=== PATIENT | female | born 1950 | race Caucasian/White ===

== ENCOUNTER 2021-11-07 13:53 | Outpatient (CLI) | payer MEDICARE, BC, SELFPAY ==
--- NOTE | 2021-11-07 14:00 | CRLHL7_ITS ---
For Patients: As a result of the Century Cures Act, medical imaging exams and procedure reports are released immediately into your electronic medical record. You may view this report before your referring provider. If you have questions, please contact your health care provider. BILATERAL MAMMOGRAM WITH COMPUTER-AIDED DETECTION AND TOMOSYNTHESIS TECHNIQUE: CC and MLO views were obtained. These mammographic images have been obtained using full-field digital technique. These mammographic images were interpreted with the benefit of computer-aided detection. Breast Tomosynthesis was used in this interpretation. COMPARISON FILM: 11/06/2020, 11/01/2019, 05/24/2018. FINDINGS: There are scattered areas of fibroglandular density IMPRESSION: There is no radiographic evidence for malignancy. ASSESSMENT: BI-RADS Category 1: Negative RECOMMENDATION: Routine screening mammogram in 1 year. A lay language report of this examination will be provided to the patient. Dario Webb M.D. Diagnostic Radiologist [email or web address] HARRIETT/Dictated by: Dario Webb MD @ 11/11/2021 11:17:00 AM (Electronically Signed)
== END 2021-11-07 13:54 | disposition home or self-care (01) ==
LOC: MAMMO 13:54
PROVIDERS: PCP Internal Medicine; Visit Provider Internal Medicine
DX: Z12.31 Encounter for screening mammogram for malignant neoplasm of breast (principal)
CPT/HCPCS: 77063; 77067

== ENCOUNTER 2022-05-22 10:51 | Outpatient (RCR) | payer MEDICARE, BC, SELFPAY | END 2022-11-18 23:59 | disposition home or self-care (01) | LOC: CCIC 10:51 | PROVIDERS: PCP Internal Medicine; Visit Provider Nurse Practitioner Family | DX: D05.92 Unspecified type of carcinoma in situ of left breast (principal) | CPT/HCPCS: 99212; 99214 ==

== ENCOUNTER 2022-11-03 09:54 | Outpatient (CLI) | payer MEDICARE, BC, SELFPAY | END 2022-11-03 09:55 | disposition home or self-care (01) | PROVIDERS: PCP Internal Medicine; Visit Provider Internal Medicine | DX: E78.5 Hyperlipidemia, unspecified (principal); E66.01 Morbid (severe) obesity due to excess calories; I10 Essential (primary) hypertension; E21.0 Primary hyperparathyroidism | CPT/HCPCS: 80048; 80061; 82306; 82310; 82397; 83970 ==

== ENCOUNTER 2023-01-26 13:15 | Outpatient (CLI) | payer MEDICARE, BC, SELFPAY ==
--- NOTE | 2023-01-26 13:20 | CRLHL7_ITS ---
For Patients: As a result of the Century Cures Act, medical imaging exams and procedure reports are released immediately into your electronic medical record. You may view this report before your referring provider. If you have questions, please contact your health care provider. BILATERAL SCREENING MAMMOGRAM WITH COMPUTER-AIDED DETECTION AND TOMOSYNTHESIS TECHNIQUE: CC and MLO views were obtained. These mammographic images have been obtained using full-field digital technique. These mammographic images were interpreted with the benefit of computer-aided detection. Breast Tomosynthesis was used in this interpretation. COMPARISON FILM: 11/07/21, 11/06/20, 11/01/19. FINDINGS: There are scattered areas of fibroglandular density IMPRESSION: There is no radiographic evidence for malignancy. ASSESSMENT: BI-RADS Category 1: Negative RECOMMENDATION: Routine screening mammogram in 1 year. A lay language report of this examination will be provided to the patient. Dario Webb M.D. Diagnostic Radiologist [email or web address] HARRIETT/Dictated by: Dario Webb MD @ 01/27/2023 11:43:00 AM (Electronically Signed)
== END 2023-01-26 13:16 | disposition home or self-care (01) ==
LOC: MAMMO 13:18
PROVIDERS: PCP Internal Medicine; Visit Provider Internal Medicine
DX: Z12.31 Encounter for screening mammogram for malignant neoplasm of breast (principal)
CPT/HCPCS: 77063; 77067

== ENCOUNTER 2023-04-12 12:26 | Outpatient (RCR) | payer MEDICARE, BC, SELFPAY | END 2023-10-09 23:59 | disposition home or self-care (01) | LOC: CCIC 12:26 | PROVIDERS: PCP Internal Medicine; Visit Provider Physician Assistant | DX: C50.912 Malignant neoplasm of unspecified site of left female breast (principal); Z17.0 Estrogen receptor positive status [ER+]; M85.80 Other specified disorders of bone density and structure, unspecified site; E66.01 Morbid (severe) obesity due to excess calories; M17.11 Unilateral primary osteoarthritis, right knee | CPT/HCPCS: 99212; 99214 ==

== ENCOUNTER 2023-12-09 15:58 | Outpatient (CLI) | payer MEDICARE, BC, SELFPAY ==
--- OUTSIDE RECORDS SUMMARY | 2023-12-12 04:36 | XMS_ITS | Clinical Summary ---
Author Organization [facility] Address [place], [place] [address] Care Team Providers Care Global Regulatory Affairs Manager Name Role Phone Kristy Tellez MD Primary Care Provider [phone]- [phone] Allergies Active Allergy Reactions Criticality Noted Date Comments Amoxicillin-Pot Clavulanate Diarrhea 09/29/19 07 Medications Medication Sig Dispensed Refills Start Date End Date Status MULTIVITAMIN TAB take 1 tablet by oral route once daily with food 0 09/28/2006 Active GLUCOSAMINE-CHONDROITI N 500 MG-400 MG CAP 1 po qd 0 09/28/2006 Activ e ASPIRIN 81 MG TAB, DELAYED RELEASE take 1 tablet (81 mg) by oral route once every other day 0 Active CALCIUM 500 WITH D 500 MG (1,250 MG)-400 UNIT TAB 1 tablet twice daily 0 Active OMEGA-3 FATTY ACIDS 1,000 MG CAP 3 tablets once daily 0 Active Cholecalciferol, Vitamin D3, (VITAMIN D) 5,000 unit Tab Take 1 tablet by mouth. 1-2 tabs weekly 0 06/30/2011 Active lansoprazole (PREVACID) 15 mg capsule Take 1 capsule by mouth once daily before a meal. 0 07/26/2012 Active lisinopril (PRINIVIL; ZESTRIL) 20 mg tabletIndications:Unsp ecified essential hypertension Take 1 tablet by mouth once daily. 90 tablet 3 07/26/2012 Active verapamil SR (CALAN SR) 240 mg SR tabletIndications:Unsp ecified essential hypertension Take 1 tablet by mouth once daily with a meal. 90 tablet 3 07/26/2012 Active chlorthalidone (HYGROTON) 25 mg tabletIndications:Unsp ecified essential hypertension Take 1 tablet by mouth once daily. 90 tablet 3 09/06/2012 Active Active Problems Problem Noted Date Diagnosed Date Hyperparathyroidism 11/28/2012 Overview: normocalcemic. See lab results 11/19 Repeat calcium every 6 months, refer back to Dr. Kimball if >11.5. OK to restart chlorthalidone, this may increase the calcium again. See Dr. Kimball yearly. Colon polyp 04/07/2011 Overview: Colonoscopy 03/2011 polyp repeat in 5 years Colonoscopy 07/2016 polyps repeat in 5 years Vitamin D deficiency 01/30/2010 Obesity, unspecified 11/16/2008 Overview: BMI: 44.29 06/2007 Ganglion, unspecified 12/07/2007 Overview: left wrist Mixed hyperlipidemia 06/23/2007 Impaired fasting glucose 06/23/2007 Esophageal reflux 06/21/2007 Unspecified essential hypertension 09/28/2006 Dysphagia 09/28/2006 Overview: Esoph Dilation lifelong ppi per Dr Calvert Anxiety state, unspecified 09/28/2006 Resolved Problems Problem Noted Date Diagnosed Date Resolved Date Mixed hyperlipidemia 01/23/2010 013 Routine general medical exam ination at a health care facility 09/28/2006 07/26/2012 Overview: Colonoscopy 09/30/2005 Recheck 5 yrs Stress Echo negative 11/21/2004 Immunizations Name Administration Dates Next Due AMB Influenza, IIV3 (Age >=3 years)(Flu Clinic Only) 02/02/2012,02/28/2008 Influenza A (H1N1), Inactiva leticia (Age >=3 Years) 05/06/2009 Influenza, IIV3 (Age >=3 years) 04/07/20 11,01/23/2010,02/01/2009,2006,03/10/2006 Pneumococcal Poly,23-Valent (Pneumovax) 07/26/2012,02/14/2002 Td (Age >=7 Years) 01/16/2003 Tdap 07/26/2012 Zoster (Zostavax-ZVL, live) 09/06/2008 Family History Medical History Relation Name Comments Hypertension Father Heart Valve Rep lacement Diabetes Maternal Aunt 1 Other Maternal Aunt 2 Alzheimers Diabetes Maternal Uncle 1 Other Maternal Uncle 2 Alzheimers Other Maternal Uncle 3 Parkinsons Other Mother Alzheimers/aaa Diabetes Other Cancer-breast No Family History Relation Name Status Comments Father Alive Maternal Aunt 1 Maternal Aunt 2 Maternal Uncle 1 Maternal Uncle 2 Maternal Uncle 3 Mother (Age 82) AAA Other Social History Tobacco Use Types Packs/Day Years Used Date Smoking Tobacco: Never Smokeless Tobacco: Never Alcohol Use Standard Drinks/Week Comments Yes 0 (1 standard drink = 0.6 oz pur e alcohol) minimal Sex and Gender Information Value Date Recorded Sex Assigned at Not on file Gender Identity Not on file Sexual Orientation Not on file Obstetrics History Para Term AB IAB SAB Ectopic Multiple Livin g Live Births 4 3 1 1 3 Date Outcome GA Total Labor Labor/2nd/3rd Weight Sex Type Anes PTL Candida A1 A5 Name Clin Para Comments:HTN Para Comments:HTN Para Comments:HTN SAB Last Filed Vital Signs Vital Sign Reading Time Taken Comments Blood Pressure 136/90 10/25/2012 12:58 PM CDT Pulse 102 10/25/2012 12:58 PM CDT Temperature 36.8 ??C (98.3 ??F) 01/08/2012 9:25 AM CD T Respiratory Rate - - Oxygen Saturation 99% 04/07/2011 2:24 PM 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 Inhaled Oxygen Concentration - - Weight 146.1 kg (322 lb) 10/25/2012 12:58 PM CDT Height 172.7 cm (5' 8) 10/25/2012 12:58 PM CDT Body Mass Index 48.96 10/25/2012 12:58 PM CDT Plan of Treatment Health Maintenance Due Date Last Done Comments Depression screening for age 12+ 1960 BMI (ht and wt on same day) for age 18+ 1966 Hepatitis C screening for ag e 18-79 1966 Zoster (shingles) series for age 50+ (2 of 3) 11/01/2008 09/06/2008 DEXA/DXA scan for age 65+ 2013 Pneumococcal series for age 65+ (2 of 2 - PCV) 07/26/2013 07/26/2012, 02/14/2002 Lipids for age 45-75 07/26/2017 07/26/2012, 07/17/2011, 05/01/2010, Additional history exists Colonoscopy through age 75 07/20/202107/20, 07/20/2016, 04/07/2011, Additional history exists Tetanus booster 07/26/2022 07/26/2012, 01/16/2003 COVID-19 vaccine series ( season) 2023 Influenza for age 65+ 01/09/2024 02/02/2012 , 04/07/2011, 01/23/2010, Additional history exists Tdap Completed 07/26/2012 Procedures Procedure Name Priority Date/Time Associated Diagnosis Comments SCAN-COLONOSCOPY 07/20/2016 12:0 0 AM CDT LIPID PANEL W REFLEX MEASURED LDL Routine 07/26/2012 3:59 PM CDT Screening, lipid from Last 3 Months or Most Recently Relevant to Health Maintenance Results * SCAN-COLONOSCOPY (07/20/2016 12:00 AM CDT) Scanner OTHER * (ABNORMAL) LIPID PANEL W REFLEX MEASURED LDL (07/26/2012 3:59 PM CDT) CHOLESTEROL,TOTAL 203(H) 100 - 199 mg/dL 07/26/2012 4:53 PM CDT [facility] TRIGLYCERIDES 72 <150 mg/dL 07/26/2012 4:53 PM CDT [facility] HDL CHOLESTEROL 64 >40 mg/dL 3 4:53 PM CDT [facility] NON-HDL CHOLESTEROL 139 <145 mg/dl 07/26/2012 4:53 PM CDT [facility] CHOL/HDL RATIO 3.17 <4.50 07/26/2012 4:53 PM CDT [facility] LDL CHOLESTEROL 125 <=130 mg/dL 07/26/2012 4:53 PM CDT [facility] PATIENT STATUS NON-FASTI NG 07/26/2012 4:53 PM CDT [facility] Blood specimen (specimen) BLOOD SPECIMEN / Unknown 07/26/2012 3:59 PM CDT 07/26/2012 3:59 PM CDT Mamie RODRÍGUEZ CHEMISTRY [facility] [address] [place] [address] from Last 3 Months or Most Recently Relevant to Health Maintenance Care Teams Global Regulatory Affairs Manager Relationship Specialty Start Date End Date Kristy Tellez MD PCP - General Internal Medicine 05/12/13
== END 2023-12-09 15:59 | disposition home or self-care (01) ==
LOC: NFLDREF 12-12 04:35
PROVIDERS: PCP Internal Medicine; Referring Provider Internal Medicine; Visit Provider Internal Medicine
DX: M85.80 Other specified disorders of bone density and structure, unspecified site (principal); E78.5 Hyperlipidemia, unspecified; I10 Essential (primary) hypertension; E66.01 Morbid (severe) obesity due to excess calories; K44.9 Diaphragmatic hernia without obstruction or gangrene; K21.9 Gastro-esophageal reflux disease without esophagitis; E21.0 Primary hyperparathyroidism
CPT/HCPCS: 80048; 80061; 82306; 83970

== ENCOUNTER 2024-01-13 14:28 | Outpatient (CLI) | payer MEDICARE, BC, SELFPAY ==
--- OUTSIDE RECORDS SUMMARY | 2024-01-13 14:31 | XMS_ITS | Clinical Summary ---
Author Organization [facility] Address [place], [place] [address] Care Team Providers Care Lead Front End Developer Name Role Phone Kristy Tellez MD Primary Care Provider [phone]- [phone] Allergies Active Allergy Reactions Criticality Noted Date [...] - Oxygen Saturation 99% 04/07/2011 2:24 PM PACKER Inhaled Oxygen Concentration - - Weight 146.1 [...] 07/26/2012, 01/16/2003 COVID-19 vaccine series ( season) 2024 Influenza for age 65+ 01/09/2024 02/02/2012 , [...] - 199 mg/dL 07/26/2012 4:53 PM CDT [facility] TRIGLYCERIDES 72 <150 mg/dL 07/26/2012 4:53 PM CDT [facility] HDL CHOLESTEROL 64 >40 mg/dL 3 4:53 PM CDT [facility] NON-HDL CHOLESTEROL 139 <145 mg/dl 07/26/2012 4:53 PM CDT [facility] CHOL/HDL RATIO 3.17 <4.50 07/26/2012 4:53 PM CDT [facility] LDL CHOLESTEROL 125 <=130 mg/dL 07/26/2012 4:53 PM CDT [facility] PATIENT STATUS NON-FASTI NG 07/26/2012 4:53 PM CDT [facility] Blood specimen (specimen) BLOOD SPECIMEN / Unknown 07/26/2012 3:59 PM CDT 07/26/2012 3:59 PM CDT Mamie RODRÍGUEZ CHEMISTRY [facility] [address] [place] [address] from Last 3 Months or Most Recently Relevant to Health Maintenance Care Teams Lead Front End Developer Relationship Specialty Start Date End Date Kristy Tellez MD PCP - General Internal Medicine 05/12/13
== END 2024-01-13 14:29 | disposition home or self-care (01) ==
LOC: NFLDREF 14:29
PROVIDERS: PCP Internal Medicine; Visit Provider Internal Medicine
DX: I10 Essential (primary) hypertension (principal)
CPT/HCPCS: 80053

== ENCOUNTER 2024-01-20 07:37 | Day surgery (SDC) | payer MEDICARE, BC, SELFPAY ==
[2024-01-20] VITALS (25 sets, daily range): BP systolic 83–177; BP diastolic 51–107; PULSE 59–104; RESP 16–20; TEMP 35.8–37; O2SAT 90–97; BMI 50.9
[2024-01-20] MEDS: ACETAMINOPHEN 500 MG TABLET 1000 MG PO ×3 (07:40→20:34)
[2024-01-20] MEDS: OXYCODONE (CR) 10 MG TAB.ER.12H PO (07:40)
[2024-01-20] MEDS: CELECOXIB 200 MG CAPSULE PO (07:40)
[2024-01-20] MEDS: MIDAZOLAM HCL 1 MG/ML inj IVP (07:41)
--- OUTSIDE RECORDS SUMMARY | 2024-01-20 07:41 | XMS_ITS | Clinical Summary ---
Author Organization [employer] [facility] Address [place], [place] [address] Care Team Providers Care Assurance Sourcing Manager Name Role Phone Kristy Tellez MD Primary Care Provider [phone]- [phone] Allergies Active Allergy Reactions Criticality Noted Date [...] Problem Noted Date Diagnosed Date Hyperparathyroidism 11/28/2012 Overview (11/28/2012): normocalcemic. See lab results 11/19 Repeat calcium every 6 months, refer back to Dr. Kimball if >11.5. OK to restart chlorthalidone, this may increase the calcium again. See Dr. Kimball yearly. Colon polyp 04/07/2011 Overview (07/22/2016): Colonoscopy 03/2011 polyp repeat in 5 years Colonoscopy 07/2016 polyps repeat in 5 years Vitamin D deficiency 01/30/2010 Obesity, unspecified 11/16/2008 Overview (11/16/2008): BMI: 44.29 06/2007 Ganglion, unspecified 12/07/2007 Overview (12/07/2007): left wrist Mixed hyperlipidemia 06/23/2007 Impaired fasting glucose 06/23/2007 Esophageal reflux 06/21/2007 Unspecified essential hypertension 09/28/2006 Dysphagia 09/28/2006 Overview (09/28/2006): Esoph Dilation lifelong ppi per Dr Calvert Anxiety state, unspecified 09/28/2006 Resolved Problems Problem Noted Date Diagnosed Date Resolved Date Mixed hyperlipidemia 01/23/2010 013 Routine general medical exam ination at a health care facility 09/28/2006 07/26/2012 Overview (06/21/2007): Colonoscopy 09/30/2005 Recheck 5 yrs Stress Echo [...] - Oxygen Saturation 99% 04/07/2011 2:24 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 Inhaled Oxygen Concentration - - Weight 146.1 [...] C screening for ag e 18-79 1966 RSV vaccine for adults or (1 - 1-dose 60+ series) 2008 Zoster (shingles) series for age 50+ (2 of 3) 11/01/2008 09/06/2008 DEXA/DXA scan for age 65+ 2013 Pneumococcal series for age 65+ (2 of 2 - PCV) 07/26/2013 07/26/2012, 02/14/2002 Lipids for age 45-75 07/26/2017 07/26/2012, 07/17/2011, 05/01/2010, Additional history exists Colonoscopy through age 75 07/20/202107/20, 07/20/2016, 04/07/2011, Additional history exists Tetanus booster 07/26/2022 07/26/2012, 01/16/2003 COVID-19 vaccine series ( - 2022- season) 2024 Influenza for age 65+ 01/09/2024 [...] - 199 mg/dL 07/26/2012 4:[address] [facility] TRIGLYCERIDES 72 <150 mg/dL 07/26/2012 4:[address] [facility] HDL CHOLESTEROL 64 >40 mg/dL 3 4:[address] [facility] NON-HDL CHOLESTEROL 139 <145 mg/dl 07/26/2012 4:[address] [facility] CHOL/HDL RATIO 3.17 <4.50 07/26/2012 4:[address] [facility] LDL CHOLESTEROL 125 <=130 mg/dL 07/26/2012 4:[address] [facility] PATIENT STATUS NON-FASTI NG 07/26/2012 4:[address] [facility] Blood specimen (specimen) BLOOD SPECIMEN / Unknown 07/26/2012 3:59 PM CDT 07/26/2012 3:59 PM CDT Mamie RODRÍGUEZ CHEMISTRY [facility] [address] [place] [address] from Last 3 Months or Most Recently Relevant to Health Maintenance Care Teams Assurance Sourcing Manager Relationship Specialty Start Date End Date Kristy Tellez MD PCP - General Internal Medicine 05/12/13
[2024-01-20] MEDS: LACTATED RINGERS 1000 ML 1,000 ML 100 ML IV (08:45)
[2024-01-20] MEDS: SODIUM CHLORIDE 0.9 % (FLUSH) 10 ML SYRINGE IVF (08:45)
[2024-01-20] MEDS: fentaNYL 100 MCG/2 ML inj IVP (09:20)
--- NOTE | 2024-01-20 09:29 | SUR.PREOP ---
TIME?OUT:?917, right knee PT/RN/MDA?VERIFICATION?OF?SURGICAL?SITE,?PROCEDURE,?AND?CONSENT OBTAINED?PRIOR?TO?INVASIVE?PROCEDURE.
--- NOTE | 2024-01-20 10:34 | P.NB_ITS ---
Nerve Block Nerve Block Time Seen by Provider: : Date Seen: 01/20/24 Type of block requested by surgeon for post-operative analgesia: adductor canal Side: right Time out performed: Yes Verification of patient name: Yes Verification of date of : Yes Site marking: site marked Name of person performing procedure: Gamaliel Continuous monitoring Was continuous monitoring of O2 sat, B/P, property assessment monitor, recorded every 15 minutes?: Yes Procedure Checklist: sterile prep, needles and gloves Ultrasound guided. Images saved: Yes Medications given in 5ml increments after negative aspiration: Ropivicaine %: 0.5 mL: 20 Needle gauge: 20 Decadron (mg): 10 Precedex (mcg): 25 Patient tolerated procedure well: Yes Additional comments: Needle noted adjacent to nerve Block Charges Block Charge (with Pro Fee): Femoral Nerve Use of Ultrasound Machine for Block: Yes- US Guidance/pain block
--- NOTE | 2024-01-20 10:35 | P.NB_ITS ---
Nerve Block Nerve Block Time Seen by Provider: :26 Date Seen: 01/20/24 Type of block requested by surgeon for post-operative analgesia: geniculars Side: right Time out performed: Yes Verification of patient name: Yes Verification of date of : Yes Site marking: site marked Name of person performing procedure: Gamaliel Continuous monitoring Was continuous monitoring of O2 sat, B/P, nuclear monitoring technician, recorded every 15 minutes?: Yes Procedure Checklist: sterile prep, needles and gloves Medications given in 5ml increments after negative aspiration: Ropivicaine %: 0.5 mL: 9 Needle gauge: 25 Patient tolerated procedure well: Yes Block Charges Block Charge (with Pro Fee): Genicular Nerve Block Use of Ultrasound Machine for Block: No
--- NOTE | 2024-01-20 10:35 | W.ANESCHARGE ---
Anesthesia Charges Start Date/Time Anesthesia Start Date: 01/20/24 Anesthesia Start Time: 09:50 Stop Date/Time Anesthesia Stop Date: 01/20/24 Anesthesia Stop Time: 12:30 Summary Extremes of Age - Over 70 or under 1: MDA
--- NOTE | 2024-01-20 11:37 | CRLHL7_ITS ---
For Patients: As a result of the Cures Act, medical imaging exams and procedure reports are released immediately into your electronic medical record. You may view this report before your referring provider. If you have questions, please contact your health care provider. Indication: Postop TKA Technique: Two views right knee Findings/Impression: Hardware from a right total knee arthroplasty is in satisfactory position. Bone alignment is normal. No sign of acute fracture. Postop changes are within normal limits. Dictated by Dario Webb MD @ 01/21/2024 10:11:15 AM (Electronically Signed)
--- NOTE | 2024-01-20 11:41 | PM.ORPRC ---
Procedure Note Date of procedure: 01/20/24 Procedure: PREOPERATIVE DIAGNOSIS: Right knee osteoarthritis POSTOPERATIVE DIAGNOSIS: Right knee osteoarthritis NAME OF OPERATION: Right total knee arthroplasty SURGEON: Stevie Deleon MD GUEST SERVICES OFFICER: JOSHUA Renner ANESTHESIA: Spinal ESTIMATED BLOOD LOSS: 10 mL COMPLICATIONS: None SPECIMENS: None DRAINS: None PREOPERATIVE ANTIBIOTICS: Ancef 3 grams, antibiotic impregnated cement IMPLANTS: 1. J&J Attune revision CRS # 8 posterior stabilized femur, with a 14 mm x 50 mm cemented stem 2. #6 revision CRS fixed-bearing tibia, with a 14 mm x 50 mm cemented stem 3. # 8 posterior stabilized, 5 mm fixed-bearing polyethylene 4. 38 patella INDICATIONS: The patient is a 73-year-old with a longstanding history of severe, unrelenting right knee pain secondary to end-stage (grade IV) right knee osteoarthritis. Despite appropriate nonoperative management, including activity modification, anti-inflammatories, [id number] pain medication, bracing, physical therapy, and injections they continue to have pain and disability. Operative intervention was offered. The risks, benefits and expected outcomes were discussed in detail. These included but were not limited to: Infection, bleeding, injury to blood vessel or nerve, venous thromboembolism. All questions were answered to their satisfaction. Use of an internet marketing assistant was necessary throughout the case for patient positioning and safety, soft tissue retraction, and closure. A modifier 22 should be added to this case. The patient's weight of 152 kg with a BMI of 51 made the exposure difficult. Additionally, to reduce the risk of aseptic loosening, stemmed components were used. These factors added more time and expense to complete the case. PROCEDURE: Spinal anesthesia was administered. The patient was placed supine on the operating table. The internet marketing assistant made sure the patient was positioned appropriately. The lower extremity was prepped and draped in the usual sterile fashion. The limb was exsanguinated with the Zeb bandage. The pneumatic tourniquet was inflated to 300 mmHg. A standard anterior incision was made with the knee in flexion. Subcutaneous dissection was sharply taken through fascial layer #1. Full-thickness medial and lateral flaps were elevated. The internet marketing assistant retracted the soft tissues and protected them throughout the case. A standard subvastus approach was made. The patella was subluxed. The infrapatellar fat pad was debrided. The menisci and cruciate ligaments were sharply d?brided. Marginal osteophytes were d?brided with the rongeur. The drill was used to penetrate the femoral canal. The canal was aspirated and irrigated with pulse lavage. The intramedullary femoral guide was placed for a 5-degree valgus cut, removing 10 mm off the distal femur. The saw was used to make the cut. Whitesides line and the trans epicondylar axis were marked. The femoral sizing guide was pinned onto the distal femur. Three degrees of external rotation nicely parallels the transepicondylar axis. Pins were placed for posterior referencing. The four-in-one cutting guide was pinned onto the distal femur. The anterior, posterior, and chamfer cuts were made. The internet marketing assistant protected the collateral ligaments. The revision trial was placed. The box cuts were made. The drill was used x2. The stemmed, boxed trial was placed and was an excellent fit. Attention was then turned to the proximal tibia. The extramedullary tibial guide was placed for a neutral varus/valgus cut with 5 degrees of posterior slope, removing 2 mm based off the medial tibial surface. The internet marketing assistant protected the collateral ligaments and the neurovascular bundle. The saw was used to make the cut. Trial components were placed. The knee was nicely balanced in both flexion and extension. The trial components were removed. The tray was placed in appropriate rotation, parallel to our tibial cutting pins. It was pinned by the internet marketing assistant and the drill x2 was used. The stemmed tibial trial was placed. The punch was used. The tray was removed. The punch was used again. Attention was then turned to the patella. [place] patellar thickness was 24 mm. The lobster claw resection guide was used with the 9.5 mm syd. The saw was used to make the cut. Drill holes were made by the internet marketing assistant. The trial was placed and was an excellent fit. Cancellous surfaces were irrigated with pulse lavage and thoroughly dried by the internet marketing assistant. We cemented the tibial component, then the femoral component. We impacted the 5 mm polyethylene onto the tibial tray. The knee was brought into full extension. We then cemented the patellar component. Excessive cement was removed. The cement was allowed to harden. The knee was taken through a range of motion and was found to be nicely balanced in both flexion and extension. The patella tracks centrally. The internet marketing assistant did a three minute dilute Betadine solution soak. The internet marketing assistant irrigated the wound with 3 liters of normal saline via pulse lavage. The internet marketing assistant reapproximated the extensor mechanism with #1 Vicryl in an interrupted [id number] fashion. The internet marketing assistant then ran the extensor mechanism with a #1 PDO Stratafix. The internet marketing assistant closed the subcutaneous tissues with a 3-0 Stratafix and the skin with a running 3-0 Stratafix in a subcuticular fashion. Glue was used to seal the skin. The internet marketing assistant placed a dry dressing. Sponge and needle counts were correct x2. The patient tolerated the procedure well. There were no apparent complications. They were carefully transferred to the hospital bed and taken to the postanesthesia care unit in satisfactory condition. PLAN: The patient will be mobilized with physical therapy. Aspirin will be used for DVT prophylaxis. They will be discharged to home once medically appropriate.
--- NOTE | 2024-01-20 12:32 | P.ANES_ITS ---
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
[2024-01-20] MEDS: ONDANSETRON 2 MG/ML inj 4 MG IVP (12:44)
[2024-01-20] MEDS: LACTATED RINGERS 1000 ML 1,000 ML 35 ML IV (12:48)
--- NOTE | 2024-01-20 15:07 | PC.NURSE ---
end of shift. pt has been very pleasant. no pain, so far. she is eating, drinking no void so far. IV is patent. dressing is C/D/I. active ice to the knee. IS to 1999. Plexi are on. PT is in working with her.
[2024-01-20] MEDS: CEFAZOLIN 3 GM in 0.9 % SODIUM CHLORIDE Mini-bag 100 ML IVPB ×2 (15:59→23:35)
[2024-01-20] MEDS: OXYCODONE 5 MG TABLET PO ×3 (17:22→23:24)
--- NOTE | 2024-01-20 17:53 | P.IMCN_ITS ---
Date of Consult Consult date: 01/20/24 Primary Care Provider: Kristy Tellez MD Consult Narrative Narrative: Annika Saul is a 73 year old female with past medical history of morbid obesity, hypertension, hyperlipidemia, IFG, sinus tachycardia, primary hyperparathyroidism and breast cancer s/p surgery in 2019 who has been admitted electively for Right total knee arthroplasty. Post operatively patient's blood pressures were soft, but IV fluids were administered and blood pressure improved and came back to normal S BP currently is 124 mm Hg. Her heart rate currently is controlled between 59-75 beats per minute, patient took her home medication of verapamil today morning. Patient is tolerating food and states that she had urinated without any problems. Pain is controlled with pain medication. Review of Systems Status of ROS: Reports: 6 or more systems reviewed and unremarkable except as noted in History and below [facility] Medical History (Updated 01/20/24 @ 18:11 by Mariaelena Andrade MD) Unspecified essential hypertension (09/28/06) ?I10 - Essential (primary) hypertension (ICD-10) Esophageal reflux (06/21/07) ?K21.9 - Gastro-esophageal reflux disease without esophagitis (ICD-10) Vitamin D deficiency (01/30/10) ?E55.9 - Vitamin D deficiency, unspecified (ICD-10) Obesity, unspecified (11/16/08) ?E66.9 - Obesity, unspecified (ICD-10) Mixed hyperlipidemia (06/23/07) ?E78.2 - Mixed hyperlipidemia (ICD-10) Impaired fasting glucose (06/23/07) ?R73.01 - Impaired fasting glucose (ICD-10) Hyperparathyroidism (11/28/12) ?E21.3 - Hyperparathyroidism, unspecified (ICD-10) Ganglion, unspecified (12/07/07) ?M67.40 - Ganglion, unspecified site (ICD-10) Dysphagia (09/28/06) ?R13.10 - Dysphagia, unspecified (ICD-10) Colon polyp (04/07/11) ?K63.5 - Polyp of colon (ICD-10) Anxiety state, unspecified (09/28/06) ?F41.1 - Generalized anxiety disorder (ICD-10) Family history of DVT ?Z82.49 - Family history of ischemic heart disease and other diseases of the circulatory system (ICD-10) 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/05/13) ?K22.2 - Esophageal obstruction (ICD-10) History of iron deficiency anemia (2018) ?Z86.2 - Personal history of diseases of the blood and blood-forming organs and certain disorders involving the immune mechanism (ICD-10) Surgical History (Updated 01/20/24 @ 18:07 by Mariaelena Andrade MD) History of arthroplasty of right knee (01/20/24) ?Z96.651 - Presence of right artificial knee joint (ICD-10) H/O arthroscopy of left knee (02/07/13) ?Z98.890 - Other specified postprocedural states (ICD-10) History of tonsillectomy (01/05/13) ?Z90.89 - Acquired absence of other organs (ICD-10) History of lumpectomy of left breast (2019) ?Z98.890 - Other specified postprocedural states (ICD-10) History of cholecystectomy (2005) ?Z90.49 - Acquired absence of other specified parts of digestive tract (ICD- 10) History of appendectomy (01/05/13) ?Z90.49 - Acquired absence of other specified parts of digestive tract (ICD- 10) Social History (Reviewed 03/02/23 @ 14:26 by Ekta Pace ~ [facility], [facility]) What is your current living situation?: I presently have a place to live In the past 12 months, utilities in danger of being shut off: no In past 12 months, lack of transportation kept you from medical appts, meetings, work, or getting things needed for daily living: no In the past 12 mos, have been you worried that your food would run out before you had money to buy more?: never true In the past 12 mos, the food you bought just didn't last and you didn't have money to buy more?: never true Smoking Status: Never smoker Second hand tobacco smoke exposure: No How often do you have a drink containing alcohol: never AUDIT-C Alcohol total score: 0 Non-prescribed substance use: denies use Caffeine: Yes How often does anyone, including family, friends and others, physically hurt you : never How often does anyone, including family, friends and others, insult or talk down to you: never How often does anyone, including family, friends and others, threaten you with harm: never How often does anyone, including family, friends and others, scream or curse at you: never Little interest or pleasure in doing things: not at all Feeling down, depressed, or hopeless: not at all service: No Meds Home Medications and Allergies Home Medications ?Medication ?Instructions ?Recorded ?Confirmed ?Type calcium carbonate 500 mg PO QDAY 05/22/22 01/20/24 History cholecalciferol (vitamin D3) 25 25 mcg PO QDAY 05/22/22 01/20/24 History mcg (1,000 unit) capsule acetaminophen 650 mg 650 mg PO Q8H PRN 04/12/23 01/20/24 History tablet,extended release (Tylenol Arthritis Pain) loratadine 10 mg tablet 10 mg PO QDAY PRN 04/12/23 01/20/24 History Allergies Allergy/AdvReac Type Severity Reaction Status Date / Time adhesive Allergy Intermediate Rash Verified 01/20/24 07:55 amoxicillin Allergy Intermediate Diarrhea Verified 01/20/24 07:55 aspirin Allergy Mild bleeding Verified 01/20/24 07:55 clavulanic acid AdvReac Diarrhea Verified 01/20/24 07:55 [From Augmentin] Exam Narrative: Exam Narrative: Physical exam GENERAL: Comfortable, no acute distress. HEAD AND NECK: Atraumatic, normocephalic CARDIOVASCULAR: RRR. Normal S1, S2. No murmurs. RESPIRATORY: Clear to auscultation B/L. Good air entry B/L. No wheezes or rhonchi. GASTROINTESTINAL: Obese, not tender to palpation. NEUROLOGY: Alert, awake, oriented X 3. Normal speech. PSYCH: Normal mood, normal affect. Const: Vital Signs, click to edit/add: Vital Signs - 24 hr 01/20/24 08:19 01/20/24 09:20 01/20/24 09:30 Temperature 98.3 F Pulse Rate 104 H 95 89 Respiratory Rate 20 20 20 Blood Pressure 148/107 H 177/92 H 166/87 H Pulse Oximetry 94 97 95 Oxygen Delivery Me thod Room Air Nasal Cannula Nasal Cannula Oxygen Flow Rate 2 2 01/20/24 09:36 01/20/24 12:25 01/20/24 12:30 Temperature 96.8 F L Pulse Rate 80 75 69 Respiratory Rate 20 16 16 Blood Pressure 134/74 88/51 L 83/58 L Pulse Oximetry 95 92 94 Oxygen Delivery Me thod Nasal Cannula Room Air Room Air Oxygen Flow Rate 2 01/20/24 12:30 01/20/24 12:35 01/20/24 12:40 Temperature Pulse Rate 65 66 68 Respiratory Rate 16 16 16 Blood Pressure 106/72 92/57 L 99/57 L Pulse Oximetry 90 94 93 Oxygen Delivery Me thod Room Air Room Air Room Air Oxygen Flow Rate 01/20/24 12:45 01/20/24 12:50 01/20/24 12:55 Temperature 97.0 F L Pulse Rate 69 68 97 Respiratory Rate 16 16 16 Blood Pressure 99/61 94/61 102/62 Pulse Oximetry 94 95 94 Oxygen Delivery Me thod Room Air Room Air Room Air Oxygen Flow Rate 01/20/24 13:02 01/20/24 13:15 01/20/24 13:30 Temperature 96.4 F L Pulse Rate 77 76 76 Respiratory Rate 16 16 16 Blood Pressure 104/69 110/65 110/65 Pulse Oximetry 91 92 91 Oxygen Delivery Me thod Room Air Room Air Room Air Oxygen Flow Rate 2 01/20/24 13:49 01/20/24 14:02 01/20/24 14:15 Temperature Pulse Rate 67 75 66 Respiratory Rate 16 16 16 Blood Pressure 100/52 L 101/60 100/59 L Pulse Oximetry 94 92 91 Oxygen Delivery Me thod Room Air Room Air Room Air Oxygen Flow Rate 2 01/20/24 14:30 01/20/24 14:30 01/20/24 14:45 Temperature Pulse Rate 66 68 60 Respiratory Rate 16 16 16 Blood Pressure 100/59 L 103/61 108/66 Pulse Oximetry 91 92 91 Oxygen Delivery Me thod Room Air Room Air Room Air Oxygen Flow Rate 2 01/20/24 16:00 01/20/24 17:00 01/20/24 17:42 Temperature Pulse Rate 64 66 Respiratory Rate 20 20 20 Blood Pressure 125/82 123/64 Pulse Oximetry 96 94 96 Oxygen Delivery Me thod Room Air Oxygen Flow Rate 01/20/24 17:47 Temperature Pulse Rate 59 L Respiratory Rate 20 Blood Pressure 124/67 Pulse Oximetry 94 Oxygen Delivery Me thod Oxygen Flow Rate Assessment and Plan Assessment and plan (1) Status post total knee replacement, right: Problem comment: -Orthopedic surgeon following -early mobilization -physical therapy/ occupational therapy -Aspirin 81 mg po bid will be used for DVT prophylaxis. Status: Acute (2) Sinus tachycardia: Problem comment: -Sinus tachycardia controlled with verapamil 240 mg extended release once a day. Patient took her dose today morning. -Verapamil stopped 2017 due to hypotension, Verapamil restarted 03/28 Status: Acute (3) Primary hyperparathyroidism: Problem comment: -mildly elevated calcium -will be monitored Status: Acute (4) Essential hypertension: Problem comment: -patient's home meds are chlorthalidone 25 mg once daily and verapamil 240 mg extended release once a day. -patient took verapamil and the morning of surgery but held chlorthalidone. Status: Acute (5) Gastroesophageal reflux disease: Problem comment: -On omeprazole Status: Acute (6) Pre-diabetes: Problem comment: Diagnosed 12/31 (fasting glucose 122) Status: Acute (7) Hyperlipidemia: Problem comment: noted 01/22 (LDL 144), LDL 126 2016, LDL 105 2017 Status: Acute (8) Morbid obesity: Problem comment: BMI 51.4 Status: Acute Plan as above Total Time Spent Total Time Spent: Time spent: Today I spent 75 minutes seeing the patient, discussing the patient with ER staff, reviewing Expanse and EPIC notes/diagnostics, discussing the care plan with our care time that includes PT/OT, pharmacy, care home and documenting my impressions and plan in the medical record.
[2024-01-20] MEDS: SENNOSIDES 1 TAB TABLET 2 TAB PO (20:35)
--- NOTE | 2024-01-20 22:23 | PC.NURSE ---
End of shift [id number] - Pt alert, oriented, cooperative. Up with standby assistance and walker with PT to chair and with nursing staff to bathroom. Continent of bowel and bladder during shift. Reported pain in operative leg as 5-8/10, given medication per MAR with pt reporting improved comfort. Ice pack on site, dressing CDI, pedal pulse present. Family at bedside, pt tolerating RA, regular diet/fluids. Pt appears to be resting comfortably in bed at end of shift with call light within reach.
[2024-01-21] MEDS: ACETAMINOPHEN 500 MG TABLET 1000 MG PO ×2 (02:56→08:11)
[2024-01-21 02:57] VITALS: BP 111/61; PULSE 77; RESP 18; TEMP 36.3; O2SAT 92
[2024-01-21] MEDS: OMEPRAZOLE 20 MG CAPSULE DR PO ×2 (05:51→08:12)
[2024-01-21 06:27] LABS: Basophils Percent Auto 0.1 % (0.0-3.0); Hemoglobin* 14.4 gm/dL (12.0-16.0); Immature Granulocytes Pct Auto 0.1 %; Lymphocytes Percent Auto 9.4 % (20-44); Mean Corpuscular HGB Conc 33 gm/dL (32-36); Mean Corpuscular Hemoglobin 30 pg (26-34); Mean Corpuscular Volume 92 fL (80-100); Neutrophils Percent Auto 84.4 % (42.0-72.0); Platelet Count* 163 K/uL (140-440); RDW Coefficient of Variation % 13.2 % (11.5-15.5); Red Blood Count 4.79 m/uL (4.00-5.20); White Blood Count* 12.19 K/uL (4.50-11.00)
[2024-01-21 06:29] LABS: Slide Review Reflex No
[2024-01-21 06:42] LABS: Potassium* 3.6 mmol/L (3.6-5.1); Sodium* 136 mmol/L (135-149)
[2024-01-21 06:45] LABS: Creatinine* 0.7 mg/dL (0.5-1.5); Est. Creatinine Clearance* 49.03; Estimated Glomerular Filt Rate 90 ml/min; Prothrombin Time 14.9 Seconds
[2024-01-21 06:46] LABS: Blood Urea Nitrogen* 19 mg/dL (7-30)
[2024-01-21 07:00] VITALS: BP 130/54; PULSE 88; RESP 18; TEMP 36.4; O2SAT 92
--- NOTE | 2024-01-21 07:33 | PC.NURSE ---
Pt is alert and oriented x3. Afebrile. Pt reports 5/10 pain in right knee, managed with cold pack, scheduled and PRN medications. Pt?s right knee dressing is CDI. Pt?s IV infiltrated, removed IV, catheter intact, wrapped hand in warm blanket and elevated on pillow, swelling came down. Pt up SBA with walker and gait belt, tolerating regular diet and voiding. Updated Daisy IBRAHIM on IV, gave ok to leave IV out.
[2024-01-21] MEDS: ASPIRIN 81 MG TABLET EC PO (08:11)
[2024-01-21] MEDS: SENNOSIDES 1 TAB TABLET 2 TAB PO (08:11)
[2024-01-21] MEDS: OXYCODONE 5 MG TABLET PO ×2 (08:18→11:14)
--- NOTE | 2024-01-21 08:26 | PM.ORPN ---
Subjective Subjective Time Seen by Provider: 07:15 Date Seen: 01/21/24 Principal diagnosis: Status post right knee replacement Interval history: Anniak is comfortable. Her family members are with her this morning. She will discharge to home today. Ortho Exam Narrative Exam Narrative: Alert and oriented x3. Patient is in no acute distress. Converses without labored breathing. Hearing is grossly intact. Ambulates with a walker. Examination the right lower extremity shows the dressing is intact. No erythema or warmth or sign of infection. Little to no soft tissue edema. No pretibial edema. CMS intact right lower extremity. Calves are soft and nontender. She is able to straight leg raise. Const Vital Signs, click to edit/add: Vital Signs - 24 hr 01/20/24 09:20 01/20/24 09:30 01/20/24 09:36 Temperature Pulse Rate 95 89 80 Pulse Rate [Left Pulse Oximeter] Respiratory Rate 20 20 20 Blood Pressure 177/92 H 166/87 H 134/74 Blood Pressure [Right Arm] Pulse Oximetry 97 95 95 Oxygen Delivery Method Nasal Cannula Nasal Cannula Nasal Cannula Oxygen Flow Rate 2 2 2 01/20/24 12:25 01/20/24 12:30 01/20/24 12:30 Temperature 96.8 F L Pulse Rate 75 69 65 Pulse Rate [Left Pulse Oximeter] Respiratory Rate 16 16 16 Blood Pressure 88/51 L 83/58 L 106/72 Blood Pressure [Right Arm] Pulse Oximetry 92 94 90 Oxygen Delivery Method Room Air Room Air Room Air Oxygen Flow Rate 01/20/24 12:35 01/20/24 12:40 01/20/24 12:45 Temperature Pulse Rate 66 68 69 Pulse Rate [Left Pulse Oximeter] Respiratory Rate 16 16 16 Blood Pressure 92/57 L 99/57 L 99/61 Blood Pressure [Right Arm] Pulse Oximetry 94 93 94 Oxygen Delivery Method Room Air Room Air Room Air Oxygen Flow Rate 01/20/24 12:50 01/20/24 12:55 01/20/24 13:02 Temperature 97.0 F L 96.4 F L Pulse Rate 68 97 77 Pulse Rate [Left Pulse Oximeter] Respiratory Rate 16 16 16 Blood Pressure 94/61 102/62 104/69 Blood Pressure [Right Arm] Pulse Oximetry 95 94 91 Oxygen Delivery Method Room Air Room Air Room Air Oxygen Flow Rate 01/20/24 13:15 01/20/24 13:30 01/20/24 13:49 Temperature Pulse Rate 76 76 67 Pulse Rate [Left Pulse Oximeter] Respiratory Rate 16 16 16 Blood Pressure 110/65 110/65 100/52 L Blood Pressure [Right Arm] Pulse Oximetry 92 91 94 Oxygen Delivery Method Room Air Room Air Room Air Oxygen Flow Rate 2 2 01/20/24 14:02 01/20/24 14:15 01/20/24 14:30 Temperature Pulse Rate 75 66 66 Pulse Rate [Left Pulse Oximeter] Respiratory Rate 16 16 16 Blood Pressure 101/60 100/59 L 100/59 L Blood Pressure [Right Arm] Pulse Oximetry 92 91 91 Oxygen Delivery Method Room Air Room Air Room Air Oxygen Flow Rate 2 01/20/24 14:30 01/20/24 14:45 01/20/24 16:00 Temperature Pulse Rate 68 60 64 Pulse Rate [Left Pulse Oximeter] Respiratory Rate 16 16 20 Blood Pressure 103/61 108/66 125/82 Blood Pressure [Right Arm] Pulse Oximetry 92 91 96 Oxygen Delivery Method Room Air Room Air Oxygen Flow Rate 01/20/24 17:00 01/20/24 17:42 01/20/24 17:47 Temperature Pulse Rate 66 59 L Pulse Rate [Left Pulse Oximeter] Respiratory Rate 20 20 20 Blood Pressure 123/64 124/67 Blood Pressure [Right Arm] Pulse Oximetry 94 96 94 Oxygen Delivery Method Room Air Oxygen Flow Rate 01/20/24 21:27 01/20/24 23:34 01/20/24 23:34 Temperature 98.4 F Pulse Rate Pulse Rate [Left Pulse Oximeter] 68 79 Respiratory Rate 20 18 Blood Pressure Blood Pressure [Right Arm] 144/78 H Pulse Oximetry 93 93 Oxygen Delivery Method Room Air Room Air Oxygen Flow Rate 01/20/24 23:34 01/21/24 02:57 Temperature 98.6 F 97.4 F L Pulse Rate Pulse Rate [Left Pulse Oximeter] 79 77 Respiratory Rate 18 18 Blood Pressure Blood Pressure [Right Arm] 133/77 111/61 Pulse Oximetry 93 92 Oxygen Delivery Method Room Air Room Air Oxygen Flow Rate Assessment and Plan Assessment and plan (1) Status post total knee replacement, right: Problem details: -Orthopedic surgeon following -early mobilization -physical therapy/ occupational therapy -Aspirin 81 mg po bid will be used for DVT prophylaxis. Her family doctor has been contacted to verify aspirin is okay for DVT prophylaxis. Waiting for her response Status: Acute Assessment and Plan: Plan for discharge is today to home if they meet discharge criteria. DVT prophylaxis includes aspirin 81 mg twice daily x1 month, Compression stockings as needed for swelling. Frequent ambulation, every hour throughout the day. I spoke with Daisy Wilcox regarding aspirin an aspirin allergy. Annika states she does not recall if it was baby aspirin or regular aspirin it was a very long time ago. Destiney feels as long as she has taken the omeprazole, can also add Tums that this would be cup protective She did state that her mother had bleeding from aspirin. We have contacted her family doctor for further recommendations. Waiting for Dr. Miller response. She is currently out. Remove dressing in 1 week. Observe wound and phone Orthopedics with any questions or concerns Return to clinic in 1 week for a wound check Return to clinic in 6 weeks with surgeon Minimize narcotic use. Wean off and discontinue soon as possible. Activities as tolerated. No strenuous activity. Outpatient physical therapy as scheduled. Ice and elevate the operative extremity. No restriction on ice.
--- NOTE | 2024-01-21 11:54 | PC.NURSE ---
Discharge Note: Pt friendly and cooperative, VS WNL and LS COA. Afebrile. Moves well with SBA, GB, and walker. Rates pain 4-5/10, Oxycodone given PRN with scheduled Tylenol and active ice in place. Tolerates regular diet without difficulty. Surgical dressing C,D,&I. Pt was discharged to home in the care of her family at 1139. Pt and her family verbalized understanding of discharge instructions and follow up appointments.
== END 2024-01-21 11:39 | disposition home or self-care (01) ==
LOC: OR 07:40 → MEDSURG 07:43
PROVIDERS: PCP Internal Medicine; Visit Provider Orthopaedic Surgery
PROC: (CPT 27447; principal; 2024-01-20 09:45)
DX: M17.11 Unilateral primary osteoarthritis, right knee (principal); G89.18 Other acute postprocedural pain; E66.01 Morbid (severe) obesity due to excess calories; Z68.43 Body mass index [BMI] 50.0-59.9, adult; I10 Essential (primary) hypertension; K21.9 Gastro-esophageal reflux disease without esophagitis; R00.0 Tachycardia, unspecified; E21.0 Primary hyperparathyroidism; R73.03 Prediabetes; E78.2 Mixed hyperlipidemia; Z82.49 Family history of ischemic heart disease and other diseases of the circulatory system; Z86.2 Personal history of diseases of the blood and blood-forming organs and certain disorders involving the immune mechanism
CPT/HCPCS: 27447; 01402; 36415; 64447; 64454; 73560; 76942; 82565; 84132; 84295; 84520; 85025; 85610; 97110; 97116; 97161; 97165; 97530; 97535; 99100; A9270; C1776; J0690; J1100; J2250; J2405; J2704; J2795; J3010; J3490; J7120

== ENCOUNTER 2024-01-26 14:42 | Outpatient (CLI) | payer MEDICARE, BC, SELFPAY ==
--- OUTSIDE RECORDS SUMMARY | 2024-01-26 14:49 | XMS_ITS | Clinical Summary ---
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 Inhaled Oxygen Concentration - - Weight 146.1 [...] - 199 mg/dL 07/26/2012 4:53 PM CDT [facility] TRIGLYCERIDES 72 <150 mg/dL 07/26/2012 4:53 PM CDT [facility] HDL CHOLESTEROL 64 >40 mg/dL 3 4:53 PM CDT [facility] NON-HDL CHOLESTEROL 139 <145 mg/dl 07/26/2012 4:53 PM CDT [facility] CHOL/HDL RATIO 3.17 <4.50 07/26/2012 4:53 PM CDT [facility] LDL CHOLESTEROL 125 <=130 mg/dL 07/26/2012 4:53 PM T [facility] PATIENT STATUS NON-FASTI NG 07/26/2012 4:53 PM T [facility] Blood specimen (specimen) BLOOD SPECIMEN / Unknown 07/26/2012 3:59 PM CDT 07/26/2012 3:59 PM CDT Mamie RODRÍGUEZ CHEMISTRY [facility] [address] [place] [address] from Last 3 Months or Most Recently Relevant to Health Maintenance Care Teams 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
--- NOTE | 2024-01-26 15:00 | CRLHL7_ITS ---
For Patients: As a result of the Century Cures Act, medical imaging exams and procedure reports are released immediately into your electronic medical record. You may view this report before your referring provider. If you have questions, please contact your health care provider. Indication: post right total knee surgery 01-20-2024 swelling pain in calf Technique: Real-time longitudinal and transverse sonographic grayscale imaging with and without compression, as well as color and duplex Doppler imaging before and after augmentation, was obtained of the deep system of the right lower extremity, including the common femoral, femoral, popliteal, posterior tibial, and peroneal veins. Comparison: None. Findings: Common femoral vein: No evidence of thrombus. Femoral vein: No evidence of thrombus. Popliteal vein: No evidence of thrombus. Calf veins: Patent. Impression: No ultrasound evidence of deep venous thrombosis. Dictated by Jaswant Head MD @ 01/26/2024 3:39:54 PM (Electronically Signed)
== END 2024-01-26 14:43 | disposition home or self-care (01) ==
LOC: US 14:45
PROVIDERS: PCP Internal Medicine; Visit Provider Physician Assistant
DX: M79.661 Pain in right lower leg (principal); M79.89 Other specified soft tissue disorders; Z96.651 Presence of right artificial knee joint
CPT/HCPCS: 93971

== ENCOUNTER 2024-02-04 21:11 | Emergency (ER) | payer MEDICARE, BC, SELFPAY ==
[2024-02-04 21:20] VITALS: BP 119/78; PULSE 104; RESP 20; TEMP 36.6; O2SAT 96; BMI 51.7
--- NOTE | 2024-02-04 21:30 | CRLHL7_ITS ---
For Patients: As a result of the Century Cures Act, medical imaging exams and procedure reports are released immediately into your electronic medical record. You may view this report before your referring provider. If you have questions, please contact your health care provider. INDICATION: Left thigh pain. TECHNIQUE: Ultrasound venous duplex lower left extremity. Compression venous exam was performed using campbell-scale, color Doppler, and spectral Doppler analysis. COMPARISON: None. FINDINGS: Limited examination due to body habitus. Deep veins: Sonographic imaging demonstrates the left common femoral, deep femoral, superficial femoral, popliteal, posterior tibial and the contralateral right common femoral veins to be fully compressible with normal color Doppler blood flow. Superficial veins: Greater saphenous vein is fully compressible. No popliteal cyst. IMPRESSION: No evident deep venous thrombosis, within the limitations noted above. Dictated by Douglas Rivera MD @ 02/04/2024 11:32:45 PM (Electronically Signed)
--- NOTE | 2024-02-04 21:33 | ED_ITS ---
HPI - General Adult General Chief complaint: Extremity Pain/Injury, Lower Stated complaint: extreme pain left leg Time Seen by Provider: 02/04/24 21:13 History of Present Illness HPI narrative: Patient is a 73 year white female who has a markedly elevated BMI who presents with left thigh pain, radiating a little bit and numbness around her left hip area. She recently underwent a right total knee replacement. She is apparently doing okay with that. She did have an ultrasound of her right leg to rule out DVT, she now has pain in her left leg and a little bit on her lateral hip sciatic notch area and lateral greater trochanteric bursa area. The patient denies trauma or injury. She has been doing her physical therapy. She is on aspirin. She is concerned about a blood clot her leg. She does have oxycodone at home but it has been uncomfortable in her leg. Primarily she notices pain in her lateral thigh and lateral hip. She has had no falls or injuries. She is still ambulatory. No marked swelling of the left lower extremity. No shortness of breath or chest pain. Related Data Home Medications ?Medication ?Instructions ?Recorded ?Confirmed calcium carbonate 500 mg PO QDAY 05/22/22 01/26/24 cholecalciferol (vitamin D3) 25 25 mcg PO QDAY 05/22/22 01/26/24 mcg (1,000 unit) capsule acetaminophen 650 mg 650 mg PO Q8H PRN 04/12/23 01/26/24 tablet,extended release (Tylenol Arthritis Pain) loratadine 10 mg tablet 10 mg PO QDAY PRN 04/12/23 01/26/24 Previous Rx's ?Medication ?Instructions ?Recorded chlorthalidone 25 mg tablet 25 mg PO QDAY #90 tabs 12/09/23 omeprazole 20 mg capsule,delayed 20 mg PO QDAY #90 caps 12/09/23 release verapamil 240 mg tablet,extended 240 mg PO QDAY #90 tabs 12/09/23 release aspirin 81 mg chewable tablet 81 mg PO BID for DVT prophylaxis 01/20/24 (Aspirin Childrens) 30 days #60 tabs sennosides 8.6 mg tablet (Senna 17.2 mg (2 x 8.6 mg) PO BID PRN 01/20/24 Lax) constipation #100 tabs rivaroxaban 10 mg tablet (Xarelto) 10 mg PO QDAY #26 tabs 01/24/24 oxycodone 5 mg tablet 2.5 - 5 mg (0.5 - 1 x 5 mg) PO 01/26/24 Q4-6H PRN Pain #42 tabs Allergies Allergy/AdvReac Type Severity Reaction Status Date / Time adhesive Allergy Intermediate Rash Verified 01/26/24 10:51 amoxicillin Allergy Intermediate Diarrhea Verified 01/26/24 10:51 aspirin Allergy Mild bleeding Verified 01/26/24 10:51 clavulanic acid AdvReac Diarrhea Verified 01/26/24 10:51 [From Augmentin] Review of Systems Status of ROS: Reports: 6 or more systems reviewed and unremarkable except as noted in History and below [facility] Medical History Unspecified essential hypertension (09/28/06) ?I10 - Essential (primary) hypertension (ICD-10) Esophageal reflux (06/21/07) ?K21.9 - Gastro-esophageal reflux disease without esophagitis (ICD-10) Vitamin D deficiency (01/30/10) ?E55.9 - Vitamin D deficiency, unspecified (ICD-10) Obesity, unspecified (11/16/08) ?E66.9 - Obesity, unspecified (ICD-10) Mixed hyperlipidemia (06/23/07) ?E78.2 - Mixed hyperlipidemia (ICD-10) Impaired fasting glucose (06/23/07) ?R73.01 - Impaired fasting glucose (ICD-10) Hyperparathyroidism (11/28/12) ?E21.3 - Hyperparathyroidism, unspecified (ICD-10) Ganglion, unspecified (12/07/07) ?M67.40 - Ganglion, unspecified site (ICD-10) Dysphagia (09/28/06) ?R13.10 - Dysphagia, unspecified (ICD-10) Colon polyp (04/07/11) ?K63.5 - Polyp of colon (ICD-10) Anxiety state, unspecified (09/28/06) ?F41.1 - Generalized anxiety disorder (ICD-10) Family history of DVT ?Z82.49 - Family history of ischemic heart disease and other diseases of the circulatory system (ICD-10) 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/05/13) ?K22.2 - Esophageal obstruction (ICD-10) History of iron deficiency anemia (2019) ?Z86.2 - Personal history of diseases of the blood and blood-forming organs and certain disorders involving the immune mechanism (ICD-10) Surgical History History of arthroplasty of right knee (01/20/24) ?Z96.651 - Presence of right artificial knee joint (ICD-10) H/O arthroscopy of left knee (02/07/13) ?Z98.890 - Other specified postprocedural states (ICD-10) History of tonsillectomy (01/05/13) ?Z90.89 - Acquired absence of other organs (ICD-10) History of lumpectomy of left breast (2019) ?Z98.890 - Other specified postprocedural states (ICD-10) History of cholecystectomy (2005) ?Z90.49 - Acquired absence of other specified parts of digestive tract (ICD- 10) History of appendectomy (01/05/13) ?Z90.49 - Acquired absence of other specified parts of digestive tract (ICD- 10) Social History What is your current living situation?: I presently have a place to live In the past 12 months, utilities in danger of being shut off: no In past 12 months, lack of transportation kept you from medical appts, meetings, work, or getting things needed for daily living: no In the past 12 mos, have been you worried that your food would run out before you had money to buy more?: never true In the past 12 mos, the food you bought just didn't last and you didn't have money to buy more?: never true Smoking Status: Never smoker Second hand tobacco smoke exposure: No How often do you have a drink containing alcohol: never AUDIT-C Alcohol total score: 0 Non-prescribed substance use: denies use Caffeine: Yes How often does anyone, including family, friends and others, physically hurt you : never How often does anyone, including family, friends and others, insult or talk down to you: never How often does anyone, including family, friends and others, threaten you with harm: never How often does anyone, including family, friends and others, scream or curse at you: never Little interest or pleasure in doing things: not at all Feeling down, depressed, or hopeless: not at all service: No Exam Narrative: Exam Narrative: Objective: Vital signs look within normal limits, patient is afebrile Patient is obese, her left leg is not swollen, ice she has got full range of motion, she does have some mild sent numbness feeling she reports her lateral th igh. Denies specifically back pain. I am able to flex extend her hip, she has no redness or cellulitic change in her lower left lower extremity. Given the size of her leg I think could be rodriguez to get a Doppler as I am unable to fully assess any venous palpable cords or other concern in her leg or thigh. Neurologic is nonfocal Const: Vital Signs, click to edit/add: Vital Signs - 24 hr 02/04/24 21:20 Temperature 97.8 F Pulse Rate [Pulse Oximeter] 104 H Respiratory Rate 20 Blood Pressure [Ri ght Upper Arm] 119/78 Pulse Oximetry 96 Oxygen Delivery Me thod Room Air Course Vital Signs Vital signs: Initial Vital Signs Temperature 97.8 F 02/04/24 21:20 Temperature Source Temporal Artery Scan 02/04/24 21:20 Pulse Rate 104 H 02/04/24 21:20 Pulse Rhythm Regular 02/04/24 21:20 Respiratory Rate 20 02/04/24 21:20 Blood Pressure 119/78 02/04/24 21:20 Blood Pressure Mean 91 02/04/24 21:20 Blood Pressure Position Sitting 02/04/24 21:20 Pulse Oximetry 96 02/04/24 21:20 Oxygen Delivery Method Room Air 02/04/24 21:20 Vital Signs Temperature 97.8 F 02/04/24 21:20 Pulse Rate 104 H 02/04/24 21:20 Respiratory Rate 20 02/04/24 21:20 Blood Pressure 119/78 02/04/24 21:20 Pulse Oximetry 96 02/04/24 21:20 Oxygen Delivery Method Room Air 02/04/24 21:20 Temperature 97.8 F 02/04/24 21:20 Pulse Rate 104 H 02/04/24 21:20 Respiratory Rate 20 02/04/24 21:20 Blood Pressure 119/78 02/04/24 21:20 Pulse Oximetry 96 02/04/24 21:20 Oxygen Delivery Method Room Air 02/04/24 21:20 Medications Administered Medications: Discontinued Medications Generic Name Dose Route Start Last Admin Trade Name Chelsea PRN Reason Stop Dose Admin Morphine Sulfate 7.5 mg 02/04/24 21:30 02/04/24 21:42 Morphine 10 Mg/Ml Inj IM 02/04/24 21:31 7.5 mg ONCE ONE Administration Medical Decision Making MDM Narrative Medical decision making narrative: 73-year-old female couple weeks postop right knee replacement with left lateral hip and thigh pain, this is more consistent with a radiculitis type pattern. Certainly from the recovery from surgery this could been exacerbated. At this point I would be hesitant to give her any steroid medication. I think an injection of morphine be appropriate to control discomfort now, and she can take oxycodone at home. She will have to continue ambulation. I think will check a Doppler scan to make sure her left leg has no clot. Disposition pending findings above if the clot study is negative I think simply home observation ice to the low back and lateral hip area would be appropriate. Consult with Orthopedics in the next few days as well. Addendum 11:00 p.m.: The patient seems to have gotten relief from the injection. Her ultrasound looked negative for DVT. At this point would recommend continue PT, work with her therapist on stretching and strengthening. Update the orthopedic team is described above. Return as needed. She does have pain medicine at home she can use if needed. Discharge Plan Discharge Clinical Impression: Acute pain of left thigh, Radiculitis Patient Disposition: Home w/ Parent or Adult Condition: Stable Additional Instructions: Recommend continue PT, continue ambulation. Recommend ice to lateral thigh and hip area. Continue her pain medication. Recommend you recheck with physical therapy and your orthopedic team within the next few days for reassessment. Activity Level: Light activity Discharge Diet: Heart Healthy (2 gm sodium, low fat) Prescriptions: No Action calcium carbonate 500 mg calcium (1,250 mg) tablet 500 mg PO QDAY cholecalciferol (vitamin D3) 25 mcg (1,000 unit) capsule 25 mcg PO QDAY acetaminophen [Tylenol Arthritis Pain] 650 mg tablet extended release 650 mg PO Q8H PRN oxycodone 5 mg tablet 2.5 - 5 mg PO Q4-6H MDD 6 tabs per day PRN (Reason: Pain) Qty: 42 0RF Rx Instructions: Minimize. Discontinue as soon as possible loratadine 10 mg tablet 10 mg PO QDAY PRN verapamil 240 mg tablet extended release 240 mg PO QDAY Qty: 90 3RF omeprazole 20 mg capsule,delayed release(DR/EC) 20 mg PO QDAY Qty: 90 3RF chlorthalidone 25 mg tablet 25 mg PO QDAY Qty: 90 3RF sennosides [Senna Lax] 8.6 mg Tablet 17.2 mg PO BID PRN (Reason: constipation) Qty: 100 0RF aspirin [Aspirin Childrens] 81 mg tablet,chewable 81 mg PO BID 30 Days Qty: 60 0RF Xarelto 10 mg tablet 10 mg PO QDAY Qty: 26 0RF Rx Instructions: for 26 days Follow Up/Referrals: Kristy Tellez MD [Primary Care Provider] - Stand Alone Forms: MyHealth Info Instructions
--- OUTSIDE RECORDS SUMMARY | 2024-02-04 21:38 | XMS_ITS | Clinical Summary ---
Author Organization [employer] [facility] Address [place], [place] [address] Care Team Providers Care Market Maker Name Role Phone Kristy Tellez MD Primary Care Provider [phone] Allergies Active Allergy Reactions Criticality Noted Date [...] - Oxygen Saturation 99% 04/07/2011 2:24 PM [employer] Inhaled Oxygen Concentration - - Weight 146.1 [...] history exists Tetanus booster 07/26/2022 07/26/2012, 01/16/2003 RSV vaccine for adults or (1 - 1-dose 75+ series) 2023 COVID-19 vaccine series ( - 2023- season) 2024 Influenza for age 65+ 01/09/2024 [...] - 199 mg/dL 07/26/2012 4:53 PM CDT [facility] TRIGLYCERIDES 72 <150 mg/dL 07/26/2012 4:53 PM CDT [facility] HDL CHOLESTEROL 64 >40 mg/dL 3 4:53 PM CDT [facility] NON-HDL CHOLESTEROL 139 <145 mg/dl 07/26/2012 4:53 PM CDT [facility] CHOL/HDL RATIO 3.17 <4.50 07/26/2012 4:53 PM CDT [facility] LDL CHOLESTEROL 125 <=130 mg/dL 07/26/2012 4:53 PM T [facility] PATIENT STATUS NON-FASTI NG 07/26/2012 4:53 PM CDT [facility] Blood specimen (specimen) BLOOD SPECIMEN / Unknown 07/26/2012 3:59 PM CDT 07/26/2012 3:59 PM CDT Mamie RODRÍGUEZ CHEMISTRY [facility] [address] [place] [address] from Last 3 Months or Most Recently Relevant to Health Maintenance Care Teams Market Maker Relationship Specialty Start Date End Date Kristy Tellez MD PCP - General Internal Medicine 05/12/13
[2024-02-04] MEDS: MORPHINE 10 MG/ML inj 7.5 MG IM (21:42)
== END 2024-02-04 23:13 | disposition home or self-care (01) ==
PROVIDERS: Emergency Provider Family Medicine; PCP Internal Medicine
DX: M79.652 Pain in left thigh (principal); M54.10 Radiculopathy, site unspecified
CPT/HCPCS: 93971; 96372; 99284; J2270

== ENCOUNTER 2024-02-06 06:53 | Emergency (ER) | payer MEDICARE, BC, SELFPAY ==
[2024-02-06 06:58] VITALS: BP 113/76; PULSE 101; RESP 20; TEMP 36.6; O2SAT 97; BMI 51.7
--- NOTE | 2024-02-06 07:21 | ED_ITS ---
HPI - General Adult General Chief complaint: Shortness of Breath/Dyspnea Stated complaint: Short of breath, cough, fever Time Seen by Provider: 02/06/24 07:07 History of Present Illness HPI narrative: 101 temp at home, taking Tylenol at home . Pt reports having shortness of breath. pt reporting coughing, wheezing, sore throat. COVID test at home was positive, taken last night 73-year-old woman presenting to the emergency department with concern of COVID and requesting treatment. Symptoms began overnight with shortness of breath ?I just feel like I can not catch my breath? and cough and some sore throat. She had home COVID test positive yesterday and a home COVID test positive this morning. Temperature up to 101 at home. She is not having chest pain. Was seen 2 days ago in the emergency department following a knee surgery and pain and swelling in her right lower leg. Was negative for DVT. She reports that she is no longer taking rivaroxaban. Has been is requesting oxygen. Renal function with a GFR of 90 was assessed 2 weeks ago Related Data Home Medications ?Medication ?Instructions ?Recorded ?Confirmed calcium carbonate 500 mg PO QDAY 05/22/22 01/26/24 cholecalciferol (vitamin D3) 25 25 mcg PO QDAY 05/22/22 01/26/24 mcg (1,000 unit) capsule acetaminophen 650 mg 650 mg PO Q8H PRN 04/12/23 01/26/24 tablet,extended release (Tylenol Arthritis Pain) loratadine 10 mg tablet 10 mg PO QDAY PRN 04/12/23 01/26/24 Previous Rx's ?Medication ?Instructions ?Recorded chlorthalidone 25 mg tablet 25 mg PO QDAY #90 tabs 12/09/23 omeprazole 20 mg capsule,delayed 20 mg PO QDAY #90 caps 12/09/23 release verapamil 240 mg tablet,extended 240 mg PO QDAY #90 tabs 12/09/23 release aspirin 81 mg chewable tablet 81 mg PO BID for DVT prophylaxis 01/20/24 (Aspirin Childrens) 30 days #60 tabs sennosides 8.6 mg tablet (Senna 17.2 mg (2 x 8.6 mg) PO BID PRN 01/20/24 Lax) constipation #100 tabs rivaroxaban 10 mg tablet (Xarelto) 10 mg PO QDAY #26 tabs 01/24/24 oxycodone 5 mg tablet 2.5 - 5 mg (0.5 - 1 x 5 mg) PO 01/26/24 Q4-6H PRN Pain #42 tabs nirmatrelvir 300 mg (150 mg See Rx Instructions PO .COMPLEX #6 02/06/24 x2)-ritonavir 100 mg tablet,dose tabs pack (Paxlovid) Allergies Allergy/AdvReac Type Severity Reaction Status Date / Time adhesive Allergy Intermediate Rash Verified 01/26/24 10:51 amoxicillin Allergy Intermediate Diarrhea Verified 01/26/24 10:51 aspirin Allergy Mild bleeding Verified 01/26/24 10:51 clavulanic acid AdvReac Diarrhea Verified 01/26/24 10:51 [From Augmentin] Review of Systems Status of ROS: Reports: 6 or more systems reviewed and unremarkable except as noted in History and below [facility] Medical History Unspecified essential hypertension (09/28/06) ?I10 - Essential (primary) hypertension (ICD-10) Esophageal reflux (06/21/07) ?K21.9 - Gastro-esophageal reflux disease without esophagitis (ICD-10) Vitamin D deficiency (01/30/10) ?E55.9 - Vitamin D deficiency, unspecified (ICD-10) Obesity, unspecified (11/16/08) ?E66.9 - Obesity, unspecified (ICD-10) Mixed hyperlipidemia (06/23/07) ?E78.2 - Mixed hyperlipidemia (ICD-10) Impaired fasting glucose (06/23/07) ?R73.01 - Impaired fasting glucose (ICD-10) Hyperparathyroidism (11/28/12) ?E21.3 - Hyperparathyroidism, unspecified (ICD-10) Ganglion, unspecified (12/07/07) ?M67.40 - Ganglion, unspecified site (ICD-10) Dysphagia (09/28/06) ?R13.10 - Dysphagia, unspecified (ICD-10) Colon polyp (04/07/11) ?K63.5 - Polyp of colon (ICD-10) Anxiety state, unspecified (09/28/06) ?F41.1 - Generalized anxiety disorder (ICD-10) Family history of DVT ?Z82.49 - Family history of ischemic heart disease and other diseases of the circulatory system (ICD-10) 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/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) ?K22.2 - Esophageal obstruction (ICD-10) History of iron deficiency anemia (2018) ?Z86.2 - Personal history of diseases of the blood and blood-forming organs and certain disorders involving the immune mechanism (ICD-10) Surgical History History of arthroplasty of right knee (01/20/24) ?Z96.651 - Presence of right artificial knee joint (ICD-10) H/O arthroscopy of left knee (02/07/13) ?Z98.890 - Other specified postprocedural states (ICD-10) History of tonsillectomy (01/05/13) ?Z90.89 - Acquired absence of other organs (ICD-10) History of lumpectomy of left breast (2019) ?Z98.890 - Other specified postprocedural states (ICD-10) History of cholecystectomy (2005) ?Z90.49 - Acquired absence of other specified parts of digestive tract (ICD- 10) History of appendectomy (01/05/13) ?Z90.49 - Acquired absence of other specified parts of digestive tract (ICD- 10) Social History What is your current living situation?: I presently have a place to live In the past 12 months, utilities in danger of being shut off: no In past 12 months, lack of transportation kept you from medical appts, meetings, work, or getting things needed for daily living: no In the past 12 mos, have been you worried that your food would run out before you had money to buy more?: never true In the past 12 mos, the food you bought just didn't last and you didn't have money to buy more?: never true Smoking Status: Never smoker Second hand tobacco smoke exposure: No How often do you have a drink containing alcohol: never AUDIT-C Alcohol total score: 0 Non-prescribed substance use: denies use Caffeine: Yes How often does anyone, including family, friends and others, physically hurt you : never How often does anyone, including family, friends and others, insult or talk down to you: never How often does anyone, including family, friends and others, threaten you with harm: never How often does anyone, including family, friends and others, scream or curse at you: never Little interest or pleasure in doing things: not at all Feeling down, depressed, or hopeless: not at all service: No Exam Narrative: Exam Narrative: Pleasant. Appears uncomfortable generally. Appears tired but answers questions quickly, easily. Mildly labored in her breathing. Not particularly tachypneic. Accompanied here by her . Has a gait belt in place. Oropharynx is dry. She admits to being quite thirsty. Lungs actually clear, without wheeze. Marked purpling or bruising over the medial right lower leg is apparently not new as noted above. Well-healing surgical scar on the anterior right knee. Heart is in elevated and regular rate. Distant. Const: Vital Signs, click to edit/add: Vital Signs - 24 hr 02/06/24 06:58 Temperature 97.8 F Pulse Rate [Left P ulse Oximeter] 101 H Respiratory Rate 20 Blood Pressure [Ri ght Upper Arm] 113/76 Pulse Oximetry 97 Oxygen Delivery Me thod Room Air Documenting provider has reviewed patient's vital signs: yes Course Vital Signs Vital signs: Initial Vital Signs Temperature 97.8 F 02/06/24 06:58 Temperature Source Temporal Artery Scan 02/06/24 06:58 Pulse Rate 101 H 02/06/24 06:58 Pulse Rhythm Regular 02/06/24 06:58 Respiratory Rate 20 02/06/24 06:58 Blood Pressure 113/76 02/06/24 06:58 Blood Pressure Mean 88 02/06/24 06:58 Blood Pressure Position Sitting 02/06/24 06:58 Pulse Oximetry 97 02/06/24 06:58 Oxygen Delivery Method Room Air 02/06/24 06:58 Vital Signs Temperature 97.8 F 02/06/24 06:58 Pulse Rate 101 H 02/06/24 06:58 Respiratory Rate 20 02/06/24 06:58 Blood Pressure 113/76 02/06/24 06:58 Pulse Oximetry 97 02/06/24 06:58 Oxygen Delivery Method Room Air 02/06/24 06:58 Temperature 97.8 F 02/06/24 06:58 Pulse Rate 101 H 02/06/24 06:58 Respiratory Rate 20 02/06/24 06:58 Blood Pressure 113/76 02/06/24 06:58 Pulse Oximetry 97 02/06/24 06:58 Oxygen Delivery Method Room Air 02/06/24 06:58 Medical Decision Making MDM Narrative Medical decision making narrative: Symptoms have started only overnight. Doubtful secondary pneumonia at this point. Negative for DVT 2 days ago DVT is reassuring regarding these pulmonary symptoms. 2 positive COVID tests; I do not think need to repeat here. Good renal function in review of records. She is oxygenating well. I do not see indication for oxygen supplementation at this point per 's concern. I would have concern for progression of COVID in setting of obesity. As noted GFR done recently would be candidate for normal dosing of Paxlovid. Medication review is done by me. Recommendations regarding medications as noted in discharge. She does sound a little congested in the nasopharynx. Some temporary use of decongestant might be beneficial for her feelings of shortness of breath as well. No wheeze. No reactive airway diagnosis. Have not prescribed prednisone at this time See patient discharge plan for further discussion Medical Records Medical records reviewed: Yes I reviewed the patient's medical records Discharge Plan Discharge Clinical Impression: COVID Patient Disposition: Home w/ Parent or Adult Condition: Stable Additional Instructions: Do stay well-hydrated. Consider sleeping in the mist of a cool mist humidifier. Menthol vapors might be helpful. Consider temporary use nasal decongestant spray if needed. Over the time that you are taking Paxlovid, it is possible that potential side effects effects of oxycodone could be amplified; one in particular of which to be more aware would be sedation. No formal recommendations however to discontinue this at this time and Paxlovid should be out of your system within 3 days of finishing the 5 day course. Verapamil side effects also can be increased. Watch for unusually slow heart rate or low blood pressure or feeling more dizzy. Would maybe need to pause this medication if feeling more of the symptoms. Hard to tell though as some of the symptoms might be side effects from being unwell with COVID. No recommendations to stop verapamil at this point. Again Paxlovid should be out of your system within 3 days of finishing the 5 day Paxlovid course. Be seen for persistent and increasing shortness of breath particularly where your oxygen saturations are 90% or less, inability to control fever, intractable vomiting or diarrhea. Ten days of quarantine from 1st day of symptoms are recommended. Would also consider yourself contagious after that point if you are continuing to have a fever; would be looking for 24 hours of no fever, and consider confirming lack of contagiousness with negative home/antigen test. Prescriptions: New Paxlovid 300 mg (150 mg x 2)-100 mg tablets,dose pack See Rx Instructions PO .COMPLEX Qty: 6 0RF Rx Instructions: take TWO 150 mg tablets of nirmatrelvir with ONE 100 mg tablet of ritonavir twice daily for 5 days No Action calcium carbonate 500 mg calcium (1,250 mg) tablet 500 mg PO QDAY cholecalciferol (vitamin D3) 25 mcg (1,000 unit) capsule 25 mcg PO QDAY acetaminophen [Tylenol Arthritis Pain] 650 mg tablet extended release 650 mg PO Q8H PRN oxycodone 5 mg tablet 2.5 - 5 mg PO Q4-6H MDD 6 tabs per day PRN (Reason: Pain) Qty: 42 0RF Rx Instructions: Minimize. Discontinue as soon as possible loratadine 10 mg tablet 10 mg PO QDAY PRN verapamil 240 mg tablet extended release 240 mg PO QDAY Qty: 90 3RF omeprazole 20 mg capsule,delayed release(DR/EC) 20 mg PO QDAY Qty: 90 3RF chlorthalidone 25 mg tablet 25 mg PO QDAY Qty: 90 3RF sennosides [Senna Lax] 8.6 mg Tablet 17.2 mg PO BID PRN (Reason: constipation) Qty: 100 0RF aspirin [Aspirin Childrens] 81 mg tablet,chewable 81 mg PO BID 30 Days Qty: 60 0RF Xarelto 10 mg tablet 10 mg PO QDAY Qty: 26 0RF Rx Instructions: for 26 days Follow Up/Referrals: Kristy Tellez MD [Primary Care Provider] - Stand Alone Forms: [employer] Info Instructions
--- OUTSIDE RECORDS SUMMARY | 2024-02-06 07:59 | XMS_ITS | Clinical Summary ---
Author Organization [employer] [facility] s [facility] Address [place], [place] [address] Care Team Providers Care Meat Stuffer Name Role Phone Kristy Tellez MD Primary Care Provider [phone]- [phone] Allergies Active Allergy Reactions Criticality Noted Date [...] - Oxygen Saturation 99% 04/07/2011 2:24 PM BENCH EXAMINER Inhaled Oxygen Concentration - - Weight 146.1 [...] 199 mg/dL 07/26/2012 4:[address] [facility] TRIGLYCERIDES 72 <150 mg/dL 07/26/2012 4:[address] [facility] HDL CHOLESTEROL 64 >40 mg/dL 3 4:[address] [facility] NON-HDL CHOLESTEROL 139 <145 mg/dl 07/26/2012 4:[address] [facility] CHOL/HDL RATIO 3.17 <4.50 07/26/2012 4:[address] [facility] LDL CHOLESTEROL 125 <=130 mg/dL 07/26/2012 4:[address] [facility] PATIENT STATUS NON-FASTI NG 07/26/2012 4:[address] [facility] Blood specimen (specimen) BLOOD SPECIMEN / Unknown 07/26/2012 3:59 PM CDT 07/26/2012 3:59 PM CDT Mamie RODRÍGUEZ CHEMISTRY [facility] [address] [place] [address] from Last 3 Months or Most Recently Relevant to Health Maintenance Care Teams Meat Stuffer Relationship Specialty Start Date End Date Kristy Tellez MD PCP - General Internal Medicine 05/12/13
== END 2024-02-06 08:06 | disposition home or self-care (01) ==
LOC: ED 07:57
PROVIDERS: Emergency Provider Family Medicine; PCP Internal Medicine
DX: U07.1 COVID-19 (principal)
CPT/HCPCS: 99283; 99284

== ENCOUNTER 2024-03-10 14:30 | Outpatient (RCR) | payer MEDICARE, BC, SELFPAY ==
--- NOTE | 2024-01-18 12:00 | PT.OPEX ---
PT [place] Outpatient Eval PT [facility] Outpatient Eval Start: 01/18/24 08:01 Freq: Status: Active Protocol: Document 01/18/24 11:06 HLA (Rec: 01/18/24 11:54 HLA Laptop) E-signed By Kristine Haley, PT, DPT Physical Therapy Outpatient Evaluation Insurance Information Insurance Name Blue Cross/Blue Shield Insurance Information/Comments Medicare and BCBS supplement Medical Diagnosis R TKA, OA Treating Diagnosis weakness, TKA 01/20/24, difficulty amb Subjective Preferred Name Annika Subjective Pain R knee with amb, limited to 50 yards, uses cane outdoors, stairs, does amb no device in the home, independent ADLS. Pain at night, overall is limited and eager to have her TKA. Pain Comments R knee Date of Surgery (If applicable) 01/20/24 Current Work Status Retired Precautions Treatment Precautions/Contraindications obesity, pain L knee (bone on bone) with Apr 2024 TKA goal Weight Bearing Status Weight Bear as Tolerated Therapy Limitations/Systems Review Not Limited Objective Range of Motion ROM: R knee 0-130 flexion, crepitus, L knee 0-130 with crepitus L shldr 0-150 elevation, plans TSA in her future otherwise WNL Strength 4/5 knees otherwise WNL UEs/ LEs Swelling no edema Palpation pain/tenderness joint line, patella Balance & Gait sitting: static/dynamic WNL standing: fair+ static/dynamic , uses cane, mainly due to pain B knees Posture fwd head, rounded shldrs Sensation/Reflexes intact to light touch Assessment Assessment/Impression 73 year old female with hx of OA, obesity, HTN, and latex allergy has c/o joint pain B shldrs, knees, with 'bone on bone' symptoms. She is undergoing R TKA with Dr. Deleon 01/20/24. Pt's is accompanying her today and will be assisting her post-op. Pt lives in a multi-level home, 2 step entry with B railings. She has been using a se cane community distances and no device in the home. Pt is ind in ADLs. She has a step in shower and will be getting a shower chair, 2 bars in shower with shower attachment. Pt also has a 4ww but it is old, 4 wheels no brakes so therapist is encouraging pt get her own ww for home use either prior to surgery or post-op. Pt was instructed inquad and ham sets , APs, heel slides, SLR, SAQ, seated knee flex/ext, hamstring stretches, use of ice/polar care, positioning chair and bed, bed mobility, transfers, gt with walker, stairs, car transfers, fall prevention, safety and OP PT progression. She will return to [facility] for OP PT next week. Plan of Care Rehabilitation Potential Good Physical Therapy Goals Within this session: Pt will verbalize understanding of pre -op/post-op safety, mobility and exercises with home program issued and pt returning for ongoing therapy after TKA replacement. Coordination/Communication With Referral Source Treatment Plan/Direct Interventions Gait Training,Ice/Cold/ Vasopneumatic,Manual Therapy, Neuromuscular Re-ed,Self-Care/ Home Management,Therapeutic Activities,Therapeutic Exercises Patient Will Be Discharged From Therapy Completion of LTG(s),Skills Plateau,Independent w/HEP, Independently Progressing Evaluation Billing Untimed Code Treatment Minutes 10 PT Eval No Charge No Complexity Low Certification Information Initial Certification Date 01/18/24 Ending Certification Date 04/16/24 Provider Signature Required Yes Provider Signature Shows Agreement With POC & Medical Necessity Physician NPI Number Write NPI# Here Physician Comment/Change : Physician Signature & Date Requested Please Sign/Date Here
== END 2024-05-12 09:47 | disposition home or self-care (01) ==
PROVIDERS: PCP Internal Medicine; Visit Provider Orthopaedic Surgery
DX: M17.11 Unilateral primary osteoarthritis, right knee (principal); Z96.651 Presence of right artificial knee joint; R53.1 Weakness; R26.2 Difficulty in walking, not elsewhere classified; Z51.89 Encounter for other specified aftercare
CPT/HCPCS: 97110; 97116; 97140; 97161; 97164

== ENCOUNTER 2024-03-14 15:21 | Outpatient (CLI) | payer MEDICARE, BC, SELFPAY ==
--- NOTE | 2024-03-14 15:20 | CRLHL7_ITS ---
For Patients: As a result of the Century Cures Act, medical imaging exams and procedure reports are released immediately into your electronic medical record. You may view this report before your referring provider. If you have questions, please contact your health care provider. BILATERAL SCREENING MAMMOGRAM WITH COMPUTER-AIDED DETECTION AND TOMOSYNTHESIS TECHNIQUE: CC and MLO views were obtained. These mammographic images have been obtained using full-field digital technique. These mammographic images were interpreted with the benefit of computer-aided detection. Breast tomosynthesis was used in this interpretation. COMPARISON FILM: 01/26/23, 11/07/21. FINDINGS: There are scattered areas of fibroglandular density. IMPRESSION: There is no radiographic evidence for malignancy. ASSESSMENT: BI-RADS Category 1: Negative RECOMMENDATION: Routine screening mammogram in 1 year. A lay language report of this examination will be provided to the patient. DARIO GOMES M.D. Diagnostic Radiologist [email or web address] Transcribed: 1:[address]/Dictated by: Dario Gomes MD @ 03/20/2024 11:13:00 AM (Electronically Signed)
--- OUTSIDE RECORDS SUMMARY | 2024-03-14 15:25 | XMS_ITS | Clinical Summary ---
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 Inhaled Oxygen Concentration - - Weight 146.1 [...] - 199 mg/dL 07/26/2012 4:53 PM CDT [facility] TRIGLYCERIDES 72 <150 mg/dL 07/26/2012 4:53 PM CDT [facility] HDL CHOLESTEROL 64 >40 mg/dL 3 4:53 PM CDT [facility] NON-HDL CHOLESTEROL 139 <145 mg/dl 07/26/2012 4:53 PM CDT [facility] CHOL/HDL RATIO 3.17 <4.50 07/26/2012 4:53 PM CDT [facility] LDL CHOLESTEROL 125 <=130 mg/dL 07/26/2012 4:53 PM T [facility] PATIENT STATUS NON-FASTI NG 07/26/2012 4:53 PM CDT [facility] Blood specimen (specimen) BLOOD SPECIMEN / Unknown 07/26/2012 3:59 PM CDT 07/26/2012 3:59 PM CDT Mamie RODRÍGUEZ CHEMISTRY [facility] [address] [place] [address] from Last 3 Months or Most Recently Relevant to Health Maintenance Care Teams Puzzle Assembler Relationship Specialty Start Date End Date Kristy Tellez MD PCP - General Internal Medicine 05/12/13
== END 2024-03-14 15:22 | disposition home or self-care (01) ==
LOC: MAMMO 15:22
PROVIDERS: PCP Internal Medicine; Visit Provider Internal Medicine
DX: Z12.31 Encounter for screening mammogram for malignant neoplasm of breast (principal)
CPT/HCPCS: 77063; 77067

== ENCOUNTER 2024-05-25 13:50 | Outpatient (RCR) | payer MEDICARE, BC, SELFPAY | END 2024-11-21 23:59 | disposition home or self-care (01) | LOC: CCIC 13:50 | PROVIDERS: PCP Internal Medicine; Visit Provider Physician Assistant | DX: C50.912 Malignant neoplasm of unspecified site of left female breast (principal); Z17.0 Estrogen receptor positive status [ER+]; Z80.42 Family history of malignant neoplasm of prostate | CPT/HCPCS: 99213; G0463 ==

== ENCOUNTER 2024-08-01 06:28 | Outpatient (CLI) | payer MEDICARE, BC, SELFPAY ==
--- NOTE | 2024-08-01 08:02 | P.ANES_ITS ---
Anesthesia Charges Start Date/Time Anesthesia Start Date: 08/01/24 Anesthesia Start Time: 07:16 Stop Date/Time Anesthesia Stop Date: 08/01/24 Anesthesia Stop Time: 07:58 Summary Extremes of Age - Over 70 or under 1: IMPLEMENTATION ENGINEER Coding CPT Codes CPT Codes: ANES LWR INTST NDSC NOS - 20525 ([id number]) P3 - PATIENT W/SEVERE SYS DISEASE, QK - BINGO CHECKER 2-4 CNCRNT ANES PROC, QX - IMPLEMENTATION ENGINEER SVC W/ MD MED DIRECTION Additional Codes: Summary - Extremes of Age - Over 70 or under 1: IMPLEMENTATION ENGINEER ([id number])
--- NOTE | 2024-08-01 08:02 | W.ANESCHARGE ---
Anesthesia Charges Start Date/Time Anesthesia Start Date: 08/01/24 Anesthesia Start Time: 07:16 Stop Date/Time Anesthesia Stop Date: 08/01/24 Anesthesia Stop Time: 07:58 Summary Extremes of Age - Over 70 or under 1: FOUNDRY LABORER COREROOM Coding CPT Codes CPT Codes: ANES LWR INTST NDSC NOS - 07240 ([id number]) P3 - PATIENT W/SEVERE SYS DISEASE, QK - TELEPHONE ANSWERING SERVICE OPERATOR 2-4 CNCRNT ANES PROC, QX - FOUNDRY LABORER COREROOM SVC W/ MD MED DIRECTION Additional Codes: Summary - Extremes of Age - Over 70 or under 1: FOUNDRY LABORER COREROOM ([id number])
--- NOTE | 2024-08-01 09:08 | P.ANES_ITS ---
Anesthesia Charges Start Date/Time Anesthesia Start Date: 08/01/24 Anesthesia Start Time: 07:16 Stop Date/Time Anesthesia Stop Date: 08/01/24 Anesthesia Stop Time: 07:58 Coding CPT Codes CPT Codes: ANES LWR INTST NDSC NOS - 73595 ([id number]) QK - ORGANIC CHEMISTRY PROFESSOR 2-4 CNCRNT ANES PROC, P3 - PATIENT W/SEVERE SYS DISEASE, QX - HSE COORDINATOR SVC W/ MD MED DIRECTION
--- NOTE | 2024-08-01 09:08 | W.ANESCHARGE ---
Anesthesia Charges Start Date/Time Anesthesia Start Date: 08/01/24 Anesthesia Start Time: 07:16 Stop Date/Time Anesthesia Stop Date: 08/01/24 Anesthesia Stop Time: 07:58 Coding CPT Codes CPT Codes: ANES LWR INTST NDSC NOS - 87300 ([id number]) QK - PANEL FLOW MACHINE OPERATOR 2-4 CNCRNT ANES PROC, P3 - PATIENT W/SEVERE SYS DISEASE, QX - INSPECTOR MACHINED PARTS SVC W/ MD MED DIRECTION
--- NOTE | 2024-08-01 09:09 | P.ANES_ITS ---
Anesthesia Charges Start Date/Time Anesthesia Start Date: 08/01/24 Anesthesia Start Time: 07:16 Stop Date/Time Anesthesia Stop Date: 08/01/24 Anesthesia Stop Time: 07:58 Summary Extremes of Age - Over 70 or under 1: MDA Coding CPT Codes CPT Codes: ANES LWR INTST NDSC NOS - 05829 ([id number]) QK - SPECIAL EDUCATION PARAEDUCATOR 2-4 CNCRNT ANES PROC, QX - MANUFACTURING MAINTENANCE TECHNICIAN SVC W/ MD MED DIRECTION, P3 - PATIENT W/SEVERE SYS DISEASE Additional Codes: Summary - Extremes of Age - Over 70 or under 1: MDA ([id number])
== END 2024-08-01 06:29 | disposition home or self-care (01) ==
LOC: OP CLINIC 06:29
PROVIDERS: PCP Internal Medicine; Visit Provider Surgery
DX: Z12.11 Encounter for screening for malignant neoplasm of colon (principal); D12.3 Benign neoplasm of transverse colon; Z86.0100 Personal history of colon polyps, unspecified
CPT/HCPCS: 00811; 45385; 88305; 99100; J2405; J2704

== ENCOUNTER 2024-08-08 13:59 | Outpatient (CLI) | payer MEDICARE, BC, SELFPAY | END 2024-08-08 14:00 | disposition home or self-care (01) | LOC: NFLDREF 14:00 | PROVIDERS: PCP Internal Medicine; Visit Provider Internal Medicine | DX: I10 Essential (primary) hypertension (principal); Z01.818 Encounter for other preprocedural examination | CPT/HCPCS: 80048 ==

== ENCOUNTER 2024-08-17 07:02 | Day surgery (SDC) | payer MEDICARE, BC, SELFPAY ==
[2024-08-17] VITALS (15 sets, daily range): BP systolic 104–186; BP diastolic 49–92; PULSE 63–90; RESP 16–24; TEMP 36.3–36.8; O2SAT 93–96; BMI 51.0
[2024-08-17] MEDS: LACTATED RINGERS 1000 ML 1,000 ML 100 ML IV (07:15)
[2024-08-17] MEDS: SODIUM CHLORIDE 0.9 % (FLUSH) 10 ML SYRINGE IVF ×2 (08:24→10:24)
[2024-08-17] MEDS: CEFAZOLIN 1 GM inj IVP (09:01)
[2024-08-17] MEDS: BUPIVACAINE 0.25% 30 ML INJECTION (09:48)
--- NOTE | 2024-08-17 09:52 | PM.ORPRC ---
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 Operative intervention was recommended. The risks, benefits and expected outcomes were discussed in detail. These included but were not limited to: Infection, bleeding, injury to blood vessel or nerve, venous thromboembolism. All questions were answered to their satisfaction. PROCEDURE: Spinal anesthesia was administered. The patient was placed supine on the operating room table. The right lower extremity was prepped and draped in the usual sterile fashion. The limb was exsanguinated with the Zeb bandage. The pneumatic tourniquet was inflated to 300 mmHg. A standard anterolateral portal was established. The arthroscope was introduced. The working portal was established anteromedially. Diagnostic arthroscopy was performed with findings as follows: The patellar component is intact with circumferential scarring surrounding it. The femoral component is normal, the tibial polyethylene is normal. The scarring posterior to the patellar tendon was debrided with the radiofrequency probe and shaver. A superolateral portal was placed. Then we aggressively debrided around the patellar component and posterior to the quads tendon with the shaver and radiofrequency probe. Arthroscopic instruments were removed, the portal sites were closed with a 3-0 nylon. Portals were injected with 0.25% Marcaine without epinephrine. A dry dressing was applied, the tourniquet was released. Sponge and needle counts were correct x 2. The patient tolerated the procedure well. There were no apparent complications. They were carefully transferred to the hospital bed and taken to the postanesthesia care unit in satisfactory condition. PLAN: The patient will be discharged to home. They may weightbear as tolerates. Range of motion will be unrestricted. They will follow up in the office in 2 weeks for a wound check and suture removal.
--- NOTE | 2024-08-17 10:13 | P.ANES_ITS ---
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
--- NOTE | 2024-08-17 10:13 | W.ANESCHARGE ---
Anesthesia Charges Start Date/Time Anesthesia Start Date: 08/17/24 Anesthesia Start Time: 08:41 Stop Date/Time Anesthesia Stop Date: 08/17/24 Anesthesia Stop Time: 10:04 Summary Extremes of Age - Over 70 or under 1: ALINING INSPECTOR Coding CPT Codes CPT Codes: ANESTH KNEE JOINT SURGERY - 31292 ([id number]) P3 - PATIENT W/SEVERE SYS DISEASE, QZ - ALINING INSPECTOR SVC W/O PROTECTION MGR BY Additional Codes: Summary - Extremes of Age - Over 70 or under 1: ALINING INSPECTOR ([id number])
--- NOTE | 2024-08-17 10:14 | SUR.PHASEI ---
Patient awake when coming to PACU, denies pain or nausea, no movement bilateral lower extremities and does not feel touch.
[2024-08-17] MEDS: HYDROmorphone 0.5 mg/0.5 ml inj IVP (10:21)
--- NOTE | 2024-08-17 10:44 | SUR.PHASEI ---
Patient feeling much better, meeting discharge criteria from PACU
[2024-08-17] MEDS: ONDANSETRON 2 MG/ML inj 4 MG IVP (10:58)
[2024-08-17] MEDS: ACETAMINOPHEN 500 MG TABLET 1000 MG PO (11:04)
== END 2024-08-17 12:17 | disposition home or self-care (01) ==
LOC: OR 07:03
PROVIDERS: PCP Internal Medicine; Visit Provider Orthopaedic Surgery
PROC: (CPT 29870; principal; 2024-08-17 09:00)
DX: M25.861 Other specified joint disorders, right knee (principal); Z96.651 Presence of right artificial knee joint
CPT/HCPCS: 29877; 01400; 99100; A9270; J0665; J0690; J1171; J2371; J2405; J2704; J3490; J7120

== ENCOUNTER 2025-04-24 12:42 | Outpatient (CLI) | payer MEDICARE, BC, SELFPAY ==
--- NOTE | 2025-04-24 13:00 | CRLHL7_ITS ---
For Patients: As a result of the Century Cures Act, medical imaging exams and procedure reports are released immediately into your electronic medical record. You may view this report before your referring provider. If you have questions, please contact your health care provider. INDICATION: BILATERAL SCREENING MAMMOGRAM, ASYMPTOMATIC 74 Y/O FEMALE COMPARISON: 03/14/2024, 01/26/2023, 11/07/2021 TECHNIQUE: Digital mammogram in CC and MLO projections including computer-aided detection (CAD) and tomosynthesis. BREAST COMPOSITION: There are scattered areas of fibroglandular density. FINDINGS: No suspicious findings. ASSESSMENT: BI-RADS 1 Negative RECOMMENDATION: Annual screening mammogram. A lay language report of this examination will be provided to the patient. Dictated by: Dario Webb MD @ 04/25/2025 10:16:46 (Electronically Signed)
== END 2025-04-24 12:43 | disposition home or self-care (01) ==
LOC: MAMMO 12:42
PROVIDERS: PCP Internal Medicine; Visit Provider Internal Medicine
DX: Z12.31 Encounter for screening mammogram for malignant neoplasm of breast (principal)
CPT/HCPCS: 77063; 77067

== ENCOUNTER 2025-04-24 13:30 | Outpatient (CLI) | payer MEDICARE, BC, SELFPAY | END 2025-04-24 13:31 | disposition home or self-care (01) | LOC: NFLDREF 13:31 | PROVIDERS: PCP Internal Medicine; Visit Provider Internal Medicine | DX: E78.5 Hyperlipidemia, unspecified (principal); M85.80 Other specified disorders of bone density and structure, unspecified site; I10 Essential (primary) hypertension | CPT/HCPCS: 80048; 80061; 82306; 82397; 83970 ==